=== PATIENT | male | born 1960 | race Caucasian/White ===

== ENCOUNTER 2023-11-14 13:55 | Emergency (ER) | payer OTHER ==
[~2023-11-14] VITALS: Ht 177.8 cm; Wt 85.3 kg
[2023-11-14 16:01] VITALS: BP 120/71; TEMP 100; O2SAT 97
== END 2023-11-14 16:01 | disposition home or self-care (01) ==
LOC: EDBD 13:55 → ER 13:55
DX: N18.9 Chronic kidney disease, unspecified (principal); Z91.158 Patient's noncompliance with renal dialysis for other reason; Z59.00 Homelessness unspecified